=== PATIENT | female | born 1970 | race Caucasian/White ===

== ENCOUNTER 2022-04-25 09:26 | Emergency (ER) | payer MEDICARE, SELFPAY ==
[2022-04-25 09:37] VITALS: BP 148/92; PULSE 74; RESP 16; TEMP 36.2; O2SAT 96; BMI 39.5
--- NOTE | 2022-04-25 10:19 | ED.GENADULT ---
HPI - General Adult General Chief complaint: Ear/Nose/Throat Problem Stated complaint: obstruction in throat Time Seen by Provider: 04/25/22 10:12 Source: patient Mode of arrival: ambulatory Limitations: no limitations History of Present Illness HPI narrative: 52-year-old female coming in today complaining of feeling that there is something the back of her throat. She states that he feels like there is mucus back there that she can not cough up. She is able to swallow and speak without any difficulty. She states that she noticed this sensation as soon she woke up this morning. She does tell me that she snores quite a bit, was supposed to have a sleep study sometime ago but never got that done. She denies any alcohol use. She states sometimes that throughout the day, every now and then, she will choke on food but this sensation is a bit different. No fevers or chills. She denies any coughing or recent illness. She does not feel short of breath. Review of Systems Status of ROS: Reports: 10 or more systems reviewed and unremarkable except as noted in History and below [facility] Social History Smoking Status: Current every day smoker What tobacco products do you use: cigarettes Years smoked: 40 Second hand tobacco smoke exposure: Yes How often do you have a drink containing alcohol: never AUDIT-C Alcohol total score: 0 Non-prescribed substance use: denies use service: No Exam Narrative: Exam Narrative: Overweight, well-developed patient in no acute distress. Alert and oriented. Answers questions appropriately. Mood and affect are appropriate. Thoughts are goal oriented and rational. No tangential or magical thinking noted. Patient speaks in full sentences without needing to catch her breath. Speech is not slurred or pressure. Voice sounds normal and not muffled. HEENT: Normocephalic atraumatic. Pupils are equally round reactive to light. Extraocular muscles are intact. Conjunctivae are moist without any icterus noted. Moist mucous membranes. Posterior pharynx shows a very large uvula that is touching the base of her tongue. It is not erythematous. The soft palate is in its proper place and is not protruding forward. I see no masses or foreign objects back there. Neck is soft without any lymphadenopathy or thyromegaly. No masses are appreciated. Skin: Well perfused without any obvious rashes. Const: Vital Signs, click to edit/add: Vital Signs - 24 hr 04/25/22 09:37 Temperature 97.2 F L Pulse Rate [Pulse Oximeter] 74 Respiratory Rate 16 Blood Pressure [Ri ght Upper Arm] 148/92 H Pulse Oximetry 96 Oxygen Delivery Me thod Room Air Course Vital Signs Vital signs: Initial Vital Signs Temperature 97.2 F L 04/25/22 09:37 Temperature Source Temporal Artery Scan 04/25/22 09:37 Pulse Rate 74 04/25/22 09:37 Pulse Rhythm 04/25/22 09:37 Respiratory Rate 16 04/25/22 09:37 Blood Pressure 148/92 H 04/25/22 09:37 Blood Pressure Mean 110 04/25/22 09:37 Blood Pressure Position Sitting 04/25/22 09:37 Pulse Oximetry 96 04/25/22 09:37 Oxygen Delivery Method 04/25/22 09:37 Vital Signs Temperature 97.2 F L 04/25/22 09:37 Pulse Rate 74 04/25/22 09:37 Respiratory Rate 16 04/25/22 09:37 Blood Pressure 148/92 H 04/25/22 09:37 Pulse Oximetry 96 04/25/22 09:37 Oxygen Delivery Method 04/25/22 09:37 Temperature 97.2 F L 04/25/22 09:37 Pulse Rate 74 04/25/22 09:37 Respiratory Rate 16 04/25/22 09:37 Blood Pressure 148/92 H 04/25/22 09:37 Pulse Oximetry 96 04/25/22 09:37 Oxygen Delivery Method 04/25/22 09:37 Medical Decision Making MDM Narrative Medical decision making narrative: 52-year-old female with sensation of something the back of her throat presenting with a very enlarged uvula likely secondary to snoring. We discussed doing a sleep study. In the meantime we discussed drinking cold beverages using ibuprofen to help with inflammation and returning if she feels like she can not speak, breathe or swallow. Patient was agreeable with this plan and had no other questions. Discharge Plan Discharge Clinical Impression: Uvular swelling Patient Disposition: Home, Self-Care Condition: Stable Additional Instructions: Recommend you follow-up with your primary care provider to have a sleep study done. In the meantime can attempt drinking very cold fluids to help with swelling and taking ibuprofen as needed/as directed. If you develop a fever, difficulty breathing or swallowing-return to the ER. You can try sleeping on your cider any position that decreases your snoring in the meantime. Stand Alone Forms: [email or web address] Instructions
--- OUTSIDE RECORDS SUMMARY | 2022-04-25 10:31 | XMS_ITS | Clinical Summary ---
:1970 Author Organization [facility] [employer] [facility] [place] [address] Care Team Providers Name Role Phone DashawntJaimeetanya SAVAGE Primary Care Provider Alize Donahue MD Unavailable Allergies Active Allergy Reactions Severity Noted Date Comments Zolpidem 03/11/2011 Breeched drug contract, no narcotics from [facility] provider s. Maximiliano Harmon D.O., Family Medicine ............... ..... 03/11/2011 8:06 P M Amoxicillin Edema 11/13/2021 facial swelling . Capsaicin *Unknown - Pt 04/14/2007 Doesn't Remember Hydromorphone Other - Describe In 06/11/2009 ears ri ng Comment Field Erythromycin Intolerance-Can't 10/13/2006 Take Hydrocodone-Acetaminophen Itching Low 01/17/2010 Cephalexin Hives 07/18/2006 Morphine Vomiting 11/14/2008 Etonogestrel-Ethinyl Diarrhea 11/22/2010 pale Estradiol Penicillins Hives, Vomiting 07/18/2006 Tramadol Itching 08/09/2014 Trazodone Anxiety 10/13/2006 Bupropion Intolerance-Can't 10/13/2006 irritable Take Medications Medication Sig Dispensed Refills Start Date End Date Status MULTIPLE VITAMIN TAB take 1 tablet by 0 Active oral route once daily with food cholecalciferol, Take 1 tablet by 0 03/30/2014 Active Vitamin D3, 2,000 unit mouth once tablet daily. camphor-menthol Apply as needed 60 g 3 09/02/2017 Active 0.2-3.5 % topical pain to affected gelIndications: Other areas. chronic pain TENS unit and As directed. 1 Each 0 09/02/2017 Ac tive electrodes cmpkIndications: Lumbar pain with radiation down right leg, Chronic bilateral low back pain with right-sided sciatica ibuprofen (ADVIL; Take 1 tablet by 180 tablet 2 08/21/2020 Active MOTRIN) 600 mg mouth every 6 tabletIndications: hours if needed Muscle spasm of back, for Pain. Lumbar pain with Maximum of 3200 radiation down right mg in 24 hours. leg, Chronic right-sided low back pain with right-sided sciatica sennosides-docusate, Take 2 Tablets 120 tablet. 6 11/26/2020 Active 8.6-50 mg, (Senna-S) by mouth 2 times 8.6-50 mg daily. tabletIndications: Other chronic pain durable medical infrared heating 1 Each 0 06/21/2021 Active equipment pad for chronic (DME)Indications: back pain. Use Chronic right-sided PRn 10-15 low back pain with minutes per right-sided sciatica, session. Lumbar pain with radiation down right leg durable medical recumbent 1 Each 0 06/21/2021 Act roby equipment bicycle indoor (DME)Indications: Chronic right-sided low back pain with right-sided sciatica, Lumbar pain with radiation down right leg baclofen (LIORESAL) 10 Take 1 Tablet 270 Tablet 1 06/21/2021 Active mg tabletIndications: (10 mg) by mouth Chronic right-sided 3 times daily if low back pain with needed (spasm). right-sided sciatica, Lumbar pain with radiation down right leg, Muscle spasm of back durable medical lumbar support 1 Each 1 06/21/2021 Active equipment brace- soft (DME)Indications: Lumbar pain with radiation down right leg, Chronic bilateral low back pain with right-sided sciatica medication order Recumbent 1 Each 0 07/03/2021 Ac tive composerIndications: bicycle- indoor Chronic bilateral low use back pain with right-sided sciatica BraceIndications: As directed. 1 Each 0 07/03/2021 Active Chronic bilateral low Lumbar Supprt back pain with Brace- Soft right-sided sciatica oxyCODONE (ROXICODONE) Take 1-2 Tablets 30 Tablet 0 11/16/2021 Active 5 mg immediate release (5-10 mg) by tabletIndications: mouth every 6 Lumbar pain with hours if needed radiation down right for Pain. leg, DDD (degenerative disc disease), lumbar omeprazole (PRILOSEC) Take 1 Capsule 90 Capsule 2 01/08/2022 Active 40 mg Delayed-Release (40 mg) by mouth capsuleIndications: once daily Bloating symptom before a meal. metroNIDAZOLE Apply topically 45 g 2 01/08/2022 Active (METROGEL) 0.75 % to affected gelIndications: area(s) 2 times Rosacea daily. levothyroxine Take 1 Tablet 90 Tablet 2 01/08/2022 A ctive (SYNTHROID) 150 mcg (150 mcg) by tabletIndications: mouth before Hypothyroidism breakfast. (acquired) meclizine (ANTIVERT) Take 1 Tablet 15 Tablet 0 03/31/2022 Active 25 mg (25 mg) by mouth tabletIndications: 3 times daily if Dizziness needed for Vertigo. Active Problems Problem Noted Date Annular tear of lumbar disc L4-5 posterior 09/08/2017 Overview: resolved and healed as of MRI 2019 DDD (degenerative disc disease), lumbar 09/08/2017 Rosacea, acne 09/02/2017 Chronic lower back pain 06/20/2014 Other pain disorders related to psychological factors 05/12/2013 Recurrent major depressive disorder 02/01/2013 Narcotic contract 12/15/2007 Overview: Controlled substance agreement on file a nd signed 05/12 with javon Harmon 01/2011 Lumbar pain with radiation down right leg 10/13/2006 Insomnia, unspecified 10/13/2006 Overview: due to back pain Heartburn 10/13/2006 Overview: EGD 08/2017 normal esophagus, Reactive ga stropathy from Nsaids Generalized hyperhidrosis 07/18/2006 Raynaud's phenomenon Resolved Problems Problem Noted Date Resolved Date Marijuana abuse 02/03/2011 08/10/2018 Unspecified drug dependence, unspecified 06/21/2021 Encounters Date Type Specialty Care Team Description 04/24/2022 Hospital Encounter Fani Hood Vertigo Randi, Zoran Trinidad, PT 04/24/2022 Travel 04/18/2022 Office Visit Jaimee Mendez, Vertigo (X 3 WEEKS ); DO Thyroid Problem (Loss of hair and fatigu e ); Abdominal Pain (Bloating ) 04/18/2022 Travel 03/31/2022 Office Visit Lightheaded (X 5 days) 03/31/2022 Emergency Armando Jurado Dizziness (Pr imary Dx); WALTER Pisano Abdominal bloat ing 03/31/2022 Travel from Last 3 Months Immunizations Name Administration Dates Next Due Influenza, IIV4 06/15/2020, 06/01/2019 Td (Age >=7 Years) 10/08/2006 Tdap 12/17/2016 Family History Medical History Relation Name Comments Alcohol/Drug Father Diabetes Maternal Grandmother HTN and Gla ucoma Alcohol/Drug Mother Relation Name Status Comments Father Maternal Grandmother Mother Social History Tobacco Use Types Packs/Day Years Used Date Light Tobacco Smoker Cigarettes 0.25 Smokeless Tobacco: Never Used Tobacco Cessation: Counseling Given: Yes Alcohol Use Standard Drinks/Week Comments No 0 (1 standard drink = 0.6 oz pure alcoho l) Sex Assigned at Date Recorded Not on file COVID-19 Exposure Response Date Recorded In the last 10 days, have you been in contact with No / Unsu re 04/24/2022 10:54 AM CDT someone who was confirmed or suspected to have Coronavirus/COVID-19? Obstetrics History Para Term AB IAB SAB Ectopic Multiple Living Live Births 5 3 3 2 3 3 Date Outcome GA Total Labor/2nd/3rd Weight Sex Delivery Anes PTL Katie A 1 A5 Name Clin Labor 1988 Term Vag Ximena ng Comments: System Generated. Please review and update details. 1989 Term Vag Living 1990 Term Vag Living 2003 AB ELECTIVE AB 2010 AB ELECTIVE AB Comments D&C x 2 for ETOP Last Filed Vital Signs Vital Sign Reading Time Taken Comments Blood Pressure 146/88 04/18/2022 9:12 AM CDT Pulse 79 04/18/2022 9:12 AM CDT Temperature 36.6 ??C (97.8 ??F) 03/31/2022 5:43 PM CDT Respiratory Rate 16 03/31/2022 5:43 PM CDT Oxygen Saturation 98% 04/18/2022 9:12 AM CDT Inhaled Oxygen Concentration - - Weight 114.8 kg (253 lb) 04/18/2022 9:12 AM CDT Height 167.6 cm (5' 6) 03/31/2022 5:43 PM CDT Body Mass Index 40.84 03/31/2022 5:43 PM CDT Plan of Treatment Upcoming Encounters Date Type Specialty Care Team Description 04/29/2022 Ancillary Procedure Health Maintenance Due Date Last Done Comments COVID-19 vaccine series (#1) 1970 Pneumococcal series for age 19-64 1976 (1 - PCV) Fecal testing non-DNA 2015 02/07/2013 (FIT,FOBT,iFOBT) for age 45-75 Zoster (shingles) series for age 0803/06/2020 50+ (1 of 2) Mammogram for age 45-75 12/24/2021 12/24/2020, 05/23/2019, 05/18/2019, Additional history exists Influenza for age 50-64 04/03/2022 06/15/2020, 06/01/2019 Depression screening for age 12+ 10/18/2022 10/18/2021, , 06/15/2020, Additional history exists BMI (ht and wt on same day) for 11/13/2022 11/13/2021, 10/01, age 18+ 10/18/2021, Additional history exists Lipids for age 45-75 06/21/2026 06/21/2021, 06/15/2020, 06/09/2019, Additional history exists Pap test for age 21-65 12/16/2026 12/16/2021, 12/16/2021, 01/04/2016, Additional history exists Tetanus booster 12/17/2026 12/17/2016, 10/08/2006 Hepatitis C screening for age Completed 07/22/2010, 2007 18-79 Tdap Completed 12/17/2016 Procedures Procedure Name Priority Date/Time Associated Diagnosis Comme nts TSH Routine 04/18/2022 10:25 Hypothyroidism Results f or this AM CDT (acquired) procedure are i n the results section. CT ABDOMEN PELVIS STAT 03/31/2022 9:09 PM Resu lts for this W CDT procedure are i n the results section. UA W/ SEDIMENT STAT 03/31/2022 7:29 PM Results for this EXAM REFLEXED PER CDT procedure are in CRITERIA the results section. EKG 12 LEAD STAT 03/31/2022 6:49 PM Results f or this CDT procedure are i n the results section. TROPONIN I STAT 03/31/2022 6:43 PM Results f or this CDT procedure are i n the results section. CBC W PLT NO DIFF STAT 03/31/2022 6:43 PM Resu lts for this CDT procedure are i n the results section. COMP METABOLIC STAT 03/31/2022 6:43 PM Results for this PANEL CDT procedure are i n the results section. from Last 3 Months Results TSH (04/18/2022 10:25 AM CDT) P athologist Signature TSH 2.82 0.35 - 4.94 04/19/2022 [facility] [employer] uIU/mL 8:27 AM CDT LABORATORY-CENTR AL LABORATORY Specimen Anatomical Collection Method / Collection Time Recei devang Time (Source) Location / Volume Laterality Blood BLOOD SPECIMEN / Venipuncture / 04/18/2022 10:25 04/18 Unknown Unknown AM CDT 10:25 AM CDT Narrative [facility] LABORATORY-CENTRAL LABORAT ORY - 04/19/2022 8:27 AM CDT In Adults, TSH values between 5.00 and 10.00 uIU/ml do not necessarily indicate the presence of Hyp othyroidism. Correlation with clinical findings such as presence of goiter and/or Thyroperoxidase (TPO) Antibody ma y be helpful. For more information please refer to KOMAL 20 04; 291: [phone]. Jaimee Mendez DO CHEMISTRY Performing Organization Address City/State/ZIP Code Phon e Number [email or web address] [employer] [address] [place] [address] LABORATORY-CENTRAL [address] ABDOMEN PELVIS W (03/31/2022 9:09 PM CDT) Anatomical Region Laterality Modality Abdomen, Pelvis, AORTA, LIVER, SPLEEN Co mputed Tomography Specimen (Source) Anatomical Collection Method Collection Time Re ceived Time Location / / Volume Laterality 03/31/2022 9:48 PM CDT Impressions 03/31/2022 9:[address] of the abdomen and pelvis. No acute wrist aseptic finding to explain abdominal pain or bloating. Please note that all CT scans at this [facility] use dose modulation, iterative reconstruction, and/or weight-based dosing when appropriate to reduce radiation dose to as low as reasonably achievable. Dictated by Sky Martinez MD @ 03/31/2022 9:48 :29 PM (Electronically Signed) Narrative 03/31/2022 9:48 PM CDT For Patients: ??As a result of the Cures Act, medical imaging exams and procedure report s are released immediately into your [employer] medical record. ??You may view this report before your referring provider. ??If you have questions, please contact your health care provider. INDICATION: Acute abdominal pain and bloating. Light headed. TECHNIQUE: CT abdomen and pelvis acquired with 100 cc Omnipaque 350 IV contrast. COMPARISON: 08/02/2010. FINDINGS: Lower chest: Unremarkable. Liver: Unremarkable. Normal in size and attenuation. No suspicious masses. Gallbladder and bile ducts: Unremarkable . No stones or inflammation. No biliary dilatation. Pancreas: Unremarkable. No mass or infla mmation. Spleen: Unremarkable. Normal in size. No masses. Adrenal glands: Unremarkable. No nodules . Kidneys: Unremarkable. No suspicious mas ses, stones, or hydronephrosis. GI tract: Unremarkable. Normal in calibe r. No sign of mass or inflammation. Normal appendix. Vasculature: Abdominal aorta is normal i n caliber. Mesenteric arteries are patent. Lymph nodes: No lymphadenopathy. Peritoneum/Abdominal Wall: Unremarkable. No sign of mass or infiltration. No free air or significant free fluid. Pelvis: Unremarkable. Bones: Unremarkable for age. Procedure Note Sky Martinez MD - 03/31/2022Format ting of this note might be different from the original. For Patients: As a result of the Cures Act, medical imaging exams and procedure reports are released immediately into your electronic medical record. You may view this report before your referring provider. If you have questions, please contact yo health care provider. INDICATION: Acute abdominal pain and bloating. Light headed. TECHNIQUE: CT abdomen and pelvis acquired with 100 cc Omnipaque 350 IV contrast. COMPARISON: 08/02/2010. FINDINGS: Lower chest: Unremarkable. Liver: Unremarkable. Normal in size and attenuation. No suspicious masses. Gallbladder and bile ducts: Unremarkable . No stones or inflammation. No biliary dilatation. Pancreas: Unremarkable. No mass or infla mmation. Spleen: Unremarkable. Normal in size. No masses. Adrenal glands: Unremarkable. No nodules . Kidneys: Unremarkable. No suspicious mas ses, stones, or hydronephrosis. GI tract: Unremarkable. Normal in calibe r. No sign of mass or inflammation. Normal appendix. Vasculature: Abdominal aorta is normal i n caliber. Mesenteric arteries are patent. Lymph nodes: No lymphadenopathy. Peritoneum/Abdominal Wall: Unremarkable. No sign of mass or infiltration. No free air or significant free fluid. Pelvis: Unremarkable. Bones: Unremarkable for age. IMPRESSION: Unremarkable CT of the abdomen and pelvi s. No acute wrist aseptic finding to explain abdominal pain or bloating. Please note that all CT scans at this [facility] use dose modulation, iterative reconstruction, and/or weight-based dosing when appropriate to reduce radiation dose to as low as reasonably achievable. Dictated by Sky Martinez MD @ 03/31/2022 9:48 :29 PM (Electronically Signed) Armando WATSON CT UA W/ SEDIMENT EXAM REFLEXED PER CRITERIA (03/31/2022 7:29 PM [facility]) [facility] Method Time Signature COLOR Yellow Yellow Color 03/31/2022 [place] 7:42 PM [facility] CLARITY Clear Clear 03/31/2022 [place] Clarity 7:42 PM [facility] SPECIFIC 1.025 1.010, 03/31/2022 [place] GRAVITY,URINE 1.015, 7:42 PM [facility] 1.020, 1.025 LABORATORY PH,URINE 6.0 6.0, 7.0, 03/31/2022 [place] 8.0, 5.5, 7:42 PM [facility] 6.5, 7.5, LABORATORY 8.5 UROBILINOGEN, Normal Normal EU/dl 03/31/2022 [place] QUALITATIVE 7:42 PM [facility] PROTEIN, Negative Negative 03/31/2022 [place] URINE mg/dL 7:42 PM [facility] GLUCOSE, Negative Negative 03/31/2022 [place] URINE mg/dL 7:42 PM CDT [facility] KETONES,URINE Negative Negative 03/31/2022 [place] mg/dL 7:42 PM CDT [facility] BILIRUBIN,URI Negative Negative 03/31/2022 [place] NE 7:42 PM CDT [facility] OCCULT Negative Negative 03/31/2022 [place] BLOOD,URINE 7:42 PM CDT [facility] NITRITE Negative Negative 03/31/2022 [place] 7:42 PM CDT [facility] LEUKOCYTE Negative Negative 03/31/2022 [place] ESTERASE 7:42 PM T [facility] LABORATORY Specimen Anatomical Collection Method Collection Time Receive d Time (Source) Location / / Volume Laterality Urine URINE SPECIMEN / Non-Blood / 03/31/2022 7:29 PM 03/31 7:39 Unknown Unknown CDT PM CDT Armando WATSON URINE Performing Organization Address City/State/ZIP Code Phon e Number [facility] [address] [place] [address] EKG 12 LEAD (03/31/2022 6:49 PM CDT) [facility] Method Time Signature Interpretation Sinus rhythm with marked sinus arrhythmia [facility] NOW Low voltage QRS Borderline ECG No previous ECGs available Ventricular Rate 64 BPM BEYOND NOW Atrial Rate 74 BPM [facility]YOND NOW P-R Interval 158 ms BEYOND NOW QRS Duration 90 ms BEYOND NOW QT 444 ms [facility] NOW QTc 458 ms BEYOND NOW P Artemas 71 degrees BEYOND NOW R Artemas 23 degrees BEYOND NOW T Artemas 31 degrees BEYOND NOW Specimen Anatomical Collection Method Collection Time Receive d Time (Source) Location / / Volume Laterality 03/31/2022 6:49 PM CDT 11:22 PM CDT Armando WATSON EKG ORD Performing Organization Address City/State/ZIP Code Phon e Number [place], [place] TROPONIN I (03/31/2022 6:43 PM CDT) P athologist Signature TROPONIN I <0.010 <0.034 03/31/2022 [place] ng/mL 7:12 PM CDT [facility] Specimen Anatomical Collection Method Collection Time Receive d Time (Source) Location / / Volume Laterality Blood BLOOD SPECIMEN / IV Start / Unknown 03/31/2022 6:43 PM 03/31/2022 6:47 Unknown CDT PM CDT Armando WATSON CHEMISTRY Performing Organization Address City/[facility]/[place] Code Phon e Number [facility] [address] [place] [address] CBC W PLT NO DIFF (03/31/2022 6:43 PM CDT) P athologist Signature WHITE BLOOD 10.1 4.5 - 11.0 03/31/2022 [place] COUNT thou/cu mm 6:50 PM [facility]T [facility] RED BLOOD COUNT 4.14 4.00 - 03/31/2022 [place] 5.20 6:50 PM T [facility] mil/cu mm LABORATORY HEMOGLOBIN 12.4 12.0 - 03/31/2022 [place] 16.0 g/dL 6:50 PM T [facility] LABORATORY HEMATOCRIT 38.0 33.0 - 03/31/2022 [place] 51.0 % 6:50 PM T [facility]ORATORY MCV 92 80 - 100 03/31/2022 [place] fL 6:50 PM T [facility] LABORATORY MCH 30.0 26.0 - 03/31/2022 [place] 34.0 pg 6:50 PM [facility] MCHC 32.6 32.0 - 03/31/2022 [place] 36.0 g/dL 6:50 PM T [facility] RDW 13.3 11.5 - 03/31/2022 [place] 15.5 % 6:50 PM T [facility]OR[facility]ORY PLATELET COUNT 243 140 - 440 03/31/2022 [place] thou/cu mm 6:50 PM T [facility] MPV 10.3 6.5 - 11.0 03/31/2022 [facility] fL 6:50 PM [facility] Specimen Anatomical Collection Method Collection Time Receive d Time (Source) Location / / Volume Laterality Blood BLOOD SPECIMEN / IV Start / Unknown 03/31/2022 6:43 PM 03/31/2022 6:47 Unknown CDT PM CDT Armando WATSON HEMATOLOGY Performing Organization Address City/[facility]/[place] Code Phon e Number [facility] [address], [place] [address] (ABNORMAL) COMP METABOLIC PANEL (03/31/2022 6:43 PM T) [facility] Signature SODIUM 138 135 - 145 03/31/2022 [place] mmol/L 7:06 PM [facility] POTASSIUM 4.2 3.5 - 5.0 03/31/2022 [place] mmol/L 7:06 PM [facility] CHLORIDE 106 98 - 110 03/31/2022 [place] mmol/L 7:06 PM [facility] CO2,TOTAL 24 21 - 31 03/31/2022 [place] mmol/L 7:06 PM [facility] ANION GAP 8 5 - 18 03/31/2022 [place] 7:06 PM [facility] GLUCOSE 89 65 - 100 03/31/2022 [place] mg/dL 7:06 PM [facility] CALCIUM 9.2 8.5 - 10.5 03/31/2022 [place] mg/dL 7:06 PM [facility] BUN 14 8 - 25 03/31/2022 [place] mg/dL 7:06 PM [facility] CREATININE 0.79 0.57 - 03/31/2022 [place] 1.11 mg/dL 7:06 PM [facility] BUN/CREAT RATIO 18 10 - 20 03/31/2022 [place] 7:06 PM [facility] ALBUMIN 4.4 3.5 - 5.2 03/31/2022 [place] g/dL 7:06 PM [facility] PROTEIN,TOTAL 7.1 6.0 - 8.0 03/31/2022 [place] g/dL 7:06 PM [facility] GLOBULIN 2.7 2.0 - 3.7 03/31/2022 [place] g/dL 7:06 PM [facility] A/G RATIO 1.6 1.0 - 2.0 03/31/2022 [place] 7:06 PM [facility] BILIRUBIN,TOTAL 0.3 0.2 - 1.2 03/31/2022 [place] mg/dL 7:06 PM [facility] ALK PHOSPHATASE 120 50 - 136 03/31/2022 [place] IU/L 7:06 PM [facility] ALT (SGPT) 29 8 - 45 03/31/2022 [place] IU/L 7:06 PM [facility] AST (SGOT) 18 2 - 40 03/31/2022 [place] IU/L 7:06 PM [facility] eGFR 90 (L) >90 03/31/2022 [facility] mL/min/1.7 7:06 PM [facility] 3m2 LABORATORY Comment: As of 2021, eGFR is calcu lated by the CKD-EPI creatinine equation without race adjustment. eGFR can be inf luenced by muscle mass, exercise, and diet. The reported eGFR is an estimation only and is only applicable if the renal function is stable. Specimen Anatomical Collection Method Collection Time Receive d Time (Source) Location / / Volume Laterality Blood BLOOD SPECIMEN / IV Start / Unknown 03/31/2022 6:43 PM 03/31/2022 6:47 Unknown CDT CDT Armando WATSON CHEMISTRY Performing Organization Address City/[facility]/ZIP Code Phon e Number [facility] [address] [place] [address] from Last 3 Months Insurance Payer Benefit Plan / Subscriber ID Effective Dates Phone Addre ss Type Group WC WORKERS COMP WC [facility] [id number]-Prese [address] [facility] [address] [place] [address] MEDICARE PART A - MEDICARE PART [id number] 2008-Presen ATTN: CLAIMS HB USE ONLY A HB ONLY t [address] [facility] [place] [address] [facility] MR [id number] 2022-Presen [address] [address] [place] [address] Care Teams Guide Dog Instructor Relationship Specialty Start Date End Date Jaimee Mendez DO PCP - General Family Practice 05/14/11 [address] [place] [address] Alize Donahue MD Gynecology Gynecology 09/02/11
== END 2022-04-25 10:45 | disposition home or self-care (01) ==
LOC: ED 10:30
PROVIDERS: Emergency Provider Family Medicine; PCP Family Medicine
DX: K13.79 Other lesions of oral mucosa (principal)
CPT/HCPCS: 99282; 99283

== ENCOUNTER 2022-07-02 20:18 | Outpatient (CLI) | payer MEDICARE, SELFPAY ==
--- OUTSIDE RECORDS SUMMARY | 2022-07-02 20:21 | XMS_ITS | Clinical Summary ---
:1970 Author Organization [facility] [place] [address] Care Team Providers Name Role Phone DashawntJaimeetanya SAVAGE Primary Care Provider Alize Donahue MD Unavailable Allergies Active Allergy Reactions Severity Noted Date Comments Zolpidem 03/11/2011 Breeched drug contract, no narcotics from [facility] provider s. Maximiliano Harmon D.O., Family Medicine [...] Encounters Date Type Specialty Care Team Description 05/13/2022 Telemedicine Efrem Harris MD Sleep Follow -up 05/13/2022 Travel 05/01/2022 Orders Only Jaimee Mendez, <No scan s attached> DO 04/29/2022 Ancillary Procedure 04/29/2022 Travel 04/24/2022 Hospital Encounter Erwin Fani Vertigo Randi, ANIMAL RESCUER Zoran Castano, PT 04/24/2022 Travel 04/18/2022 Office Visit Jaimee Mendez, Jules (X 3 WEEKS ); DO Thyroid Problem (Loss of hair and fatigu e ); Abdominal Pain (Bloating ) 04/18/2022 Travel from Last 3 Months Immunizations Name [...] 0.25 Smokeless Tobacco: Never Used Tobacco Cessation: Ready to Quit: Yes; C ounseling Given: Yes Alcohol Use Standard Drinks/Week Comments No 0 (1 standard drink = 0.6 oz pure alcoho l) Sex Assigned at Date Recorded Not on file Obstetrics History Para Term AB IAB SAB Ectopic Multiple Living Live Births 5 3 3 2 3 3 Date Outcome GA Total Labor/2nd/3rd Weight Sex Delivery Anes PTL Katie A 1 A5 Name Clin Labor 1988 Term Vag Ximena ng Comments: System Generated. Please review and update details. 1989 Term Vag Living 1990 Term Vag Living 2003 AB ELECTIVE AB 2011 AB ELECTIVE AB Comments D&C x 2 [...] Encounters Date Type Specialty Care Team Description 07/11/2022 Office Visit Jaimee Mendez ea, DO [address] [facility] [place] [address] (Wo rk) 08/15/2022 Nurse/Clinic Staff Only 08/19/2022 Procedure Only Hardeep Young MD [address] [facility] [place] [address] (Wo rk) Health Maintenance Due Date Last Done Comments [...] history exists Tetanus booster 12/17/2026 12/17/2016, 10/08/2006 HIV for age 15-65 Completed 05/05/2008 Hepatitis C screening for age Completed 07/22/2010, 2007 18-79 Tdap Completed 12/17/2016 Procedures Procedure Name Priority Date/Time Associated Diagnosis Comme nts NM HEPATOBILIARY Routine 04/29/2022 10:25 Postprandial abdomin al Results for this IMAGING WITH EF AM CDT bloating procedure are in Fatty stools the results section. TSH Routine 04/18/2022 10:25 Hypothyroidism Results f or this AM CDT (acquired) procedure are i n the results section. from Last 3 Months Results NM HEPATOBILIARY IMAGING WITH EF (04/29/2022 10:25 AM CDT) Anatomical Region Laterality Modality LIVER Nuclear Medicine Specimen (Source) Anatomical Collection Method Collection Time Re ceived Time Location / / Volume Laterality 04/29/2022 11:09 AM CDT Impressions 04/29/2022 11:09 AM CDT 1. There is no evidence of acute or chronic cholecystitis. 2. Normal gallbladder ejection fraction of 60 percent. Dictated by Vijay Stephen MD @ Apr 29 2022 11:09AM (Electronically Signed) ?? Narrative 04/29/2022 11:09 AM CDT For Patients: ??As a result of the Century Cures Act, medical imaging exams and procedure report s are released immediately into your [facility] medical record. ??You may view this report before your referring provider. ??If you have questions, please contact your health care provider. HISTORY: 52-year-old female. Postprandial abdomin al bloating. Indigestion. TECHNIQUE: 5.31 millicuries of technetium-99m mebro fenin was injected intravenously. Images of the liver, gallbladder and abdomen were obtained in the anterior projection for 50 minutes. 2.30 mcg CCK was then admi nistered intravenously and imaging was c ontinued for an additional 30 minutes. FINDINGS: There is good uptake of activity by the hepatocytes. There is visualization of the biliary tree, gallbladder and small bowel. In response to CCK administration, there was a normal gallbladder ejection fraction of 60 percent by 30 minutes. The patient stated that her presenting symptoms were reproduced during the CCK portion of the examination. Procedure Note Vijay Stephen MD - 04/29/2022 For Patients: As a result of the ntury Cures Act, medical imaging exams and procedure reports are released immediately into your electronic medical record. You may view this report before your referring provider. If you have questions, please contact [facility] health care provider. HISTORY: 52-year-old female. Postprandial abdomin al bloating. Indigestion. TECHNIQUE: 5.31 millicuries of technetium-99m mebro fenin was injected intravenously. Images of the liver, gallbladder and abdomen were obtained in the anterior projection for 50 minutes. 2.30 mcg CCK was then administered intravenously and imaging was continued for an additional 30 minutes. FINDINGS: There is good uptake of activity by the hepatocytes. There is visualization of the biliary tree, gallbladder and small bowel. In response to CCK administration, there was a normal gallbladder ejection fraction of 60 percent by 30 minutes. The patient stated that her presenting symptoms were reproduced during the CCK portion of the examination. IMPRESSION: 1. There is no evidence of acute or software architect galindo cholecystitis. 2. Normal gallbladder ejection fraction of 60 percent. Dictated by Vijay Stephen MD @ Apr 29 2022 11:09AM (Electronically Signed) Jaimee Mendez DO NM TSH (04/18/2022 10:25 AM CDT) athologist Signature TSH 2.82 0.35 - 4.94 04/19/2022 [facility] TripMark uIU/mL 8:27 AM CDT LABORATORY-CENTR AL LABORATORY Specimen Anatomical Collection Method / Collection Time Recei devang Time (Source) Location / Volume Laterality Blood BLOOD SPECIMEN / Venipuncture / 04/18/2022 10:25 04/18 Unknown Unknown AM CDT 10:25 AM CDT Narrative [facility] - 04/19/2022 8:27 AM CDT In Adults, TSH values between 5.00 and 10.00 uIU/ml do not necessarily indicate the presence of Hyp othyroidism. Correlation with clinical findings such as presence of goiter and/or Thyroperoxidase (TPO) Antibody ma y be helpful. For more information please refer to KOMAL 20 ; 291: [id number]. Jaimee Mendez DO CHEMISTRY Performing Organization Address City/State/ZIP Code [facility] e Number [phone] [place] [address] LABORATORY-CENTRAL 2000 LABORATORY from Last 3 Months Insurance Payer Benefit Plan / Subscriber ID Effective Dates Phone Addre ss Type Group WC WORKERS COMP WC [facility] [id number]-Prese [address] [facility] [address] [place] [address] MEDICARE PART A - MEDICARE PART [id number] 2008-Presen ATTN: CLAIMS HB USE ONLY A HB ONLY t [address] [place] [address] [facility] MR [id number] 2022-Presen [address] [address] [place] [address] Care Teams Embossing Calender Operator Relationship Specialty Start Date End Date Jaimee Mendez DO PCP - General Family Practice 05/14/11 [address] [place] [address] Alize Donahue MD Gynecology Gynecology 09/02/11
== END 2022-07-02 20:19 | disposition home or self-care (01) ==
PROVIDERS: PCP Family Medicine; Visit Provider Internal Medicine
DX: G47.33 Obstructive sleep apnea (adult) (pediatric) (principal)
CPT/HCPCS: 95811